=== PATIENT | female | born 1955 | race Caucasian/White ===

== ENCOUNTER 2020-07-11 07:31 | Day surgery (SDC) | payer MEDICAID ==
[~2020-07-11] VITALS: Ht 162.6 cm; Wt 94.0 kg
[2020-07-11] VITALS (11 sets, daily range): BP systolic 99–139; BP diastolic 51–74
[~2020-07-11 07:31] MED LIST: BIMA2.5D EACHEYE; DIGO250T PO; DILT240C51 PO; FERR325T28 PO; FLAX100019 PO; GABA-530 PO; GLYB5TAB7 PO; HYDR25TA4 PO; INSU100V12 SQ; LISI40TA4 PO; METF500T PO; METO25TA6 PO; MULT-1085 PO; POTA8TAB8 PO; RIVA20TA PO
[2020-07-11] MEDS ORDERED: diphenhydrAMINE 25mg capsule PO PRN (08:00)
[2020-07-11] MEDS ORDERED: normal saline 1,000 ML IV SCH (08:00)
[2020-07-11] MEDS ORDERED: LEVO25TA2 PO (08:32)
[2020-07-11] MEDS ORDERED: FENO145T46 PO (08:36)
[2020-07-11] MEDS ORDERED: ATOR10TA87 PO (08:36)
[2020-07-11] MEDS ORDERED: FURO80TA87 PO (08:58)
[2020-07-11] MEDS ORDERED: METO100T7 PO (09:00)
[2020-07-11] MEDS ORDERED: iohexol 350 MG/ML 50ML vial IV ONE (09:01)
[2020-07-11] MEDS ORDERED: fentaNYL/PF 50MCG/1 ML 2ML syringe ONE (09:01)
[2020-07-11] MEDS ORDERED: midazolam 2 mg/2 ml injection ONE ×2 (09:01→09:31)
[2020-07-11] MEDS ORDERED: LIDOcaine 1% (10mg/ml)w/preservative injection 20ml MDV ONE (09:01)
[2020-07-11] MEDS ORDERED: heparin 1,000unit/ml 10ml vial 10 ML ONE (09:01)
[2020-07-11] MEDS ORDERED: iohexol 350MG/ML 100ml bottle IV ONE (09:01)
[2020-07-11] MEDS ORDERED: CYAN100T47 PO (09:02)
[2020-07-11 09:03] LABS: BASOPHILS % (AUTO) 0.3 % (0-1); EOSINOPHILS # (AUTO) 0.3 X10'3 (0-0.9); EOSINOPHILS % (AUTO) 3.3 % (0-6); HEMOGLOBIN 14.2 g/dl (12.0-16.0); LYMPHOCYTES # (AUTO) 0.4 X10'3 (1.1-4.8); LYMPHOCYTES % (AUTO) 4.9 % (21-51); MEAN CORPUSCULAR HEMOGLOBIN 28.5 PG (27.0-31.0); MEAN CORPUSCULAR HGB CONC 33.1 g/dL (33.0-36.5); MEAN CORPUSCULAR VOLUME 86.2 FL (78-98); MEAN PLATELET VOLUME 9.3 FL (7.4-10.4); MONOCYTES # (AUTO) 0.5 X10'3 (0-0.9); MONOCYTES % (AUTO) 6.5 % (2-12); PLATELET COUNT 211 X10'3 (140-440); RED BLOOD COUNT 4.99 X10'6 (4.20-5.60); WHITE BLOOD COUNT 8.3 X10'3 (4.5-11.0)
[2020-07-11 09:13] LABS: ALBUMIN 2.2 G/DL (3.4-5.0); ANION GAP 5 (8-16); BLOOD UREA NITROGEN 24 MG/DL (7-18); CHLORIDE 105 MMOL/L (99-107); GLUCOSE 174 MG/DL (70-104); MAGNESIUM 1.6 MG/DL (1.5-2.4); SODIUM 141 MMOL/L (135-145); TOTAL CARBON DIOXIDE 31.1 MMOL/L (24-32); eGFR 35 ML/MIN
== END 2020-07-11 14:30 | disposition home or self-care (01) ==
LOC: SSTAY O 07:31
PROVIDERS: ATTEND Internal Medicine Cardiovascular Disease
DX: I31.1 Chronic constrictive pericarditis (principal); I25.10 Atherosclerotic heart disease of native coronary artery without angina pectoris; I48.20 Chronic atrial fibrillation, unspecified; E78.5 Hyperlipidemia, unspecified; E11.9 Type 2 diabetes mellitus without complications; E66.9 Obesity, unspecified; Z68.35 Body mass index [BMI] 35.0-35.9, adult; I10 Essential (primary) hypertension; Z79.899 Other long term (current) drug therapy; Z79.4 Long term (current) use of insulin; Z98.890 Other specified postprocedural states
CPT/HCPCS: 36415; 80048; 82948; 83735; 85025; 85610; 93005; 93460; 99152; 99153; C1760; C1894; J1644; J2001; J2250; J3010; J7030; J7040; Q9967; A4620; A6258; C1751

== ENCOUNTER 2020-10-22 07:30 | Inpatient (IN) | payer MEDICARE, MEDICAID ==
[2020-10-15 12:13] LABS: CLARITY,URINE CLEAR (Clear); COLOR,URINE YELLOW (Yellow); GLUCOSE, URINE NEGATIVE (Neg); KETONES,URINE NEGATIVE (Neg); LEUKOCYTE ESTERASE ,URINE NEGATIVE (Neg); NITRITES, URINE NEGATIVE (Neg); OCCULT BLOOD,URINE NEGATIVE (Neg); PH,URINE 5.5 (4.8-8.0); PROTEIN,URINE NEGATIVE (Neg); UROBILINOGEN,URINE 0.2 E.U/dL (0.2-1.0)
[2020-10-15 12:32] LABS: BASOPHILS % (AUTO) 0.3 % (0-1); EOSINOPHILS # (AUTO) 0.2 X10'3 (0-0.9); EOSINOPHILS % (AUTO) 2.8 % (0-6); LYMPHOCYTES # (AUTO) 0.4 X10'3 (1.1-4.8); LYMPHOCYTES % (AUTO) 5.4 % (21-51); MEAN CORPUSCULAR HEMOGLOBIN 27.3 PG (27.0-31.0); MEAN CORPUSCULAR HGB CONC 32.4 g/dL (33.0-36.5); MEAN CORPUSCULAR VOLUME 84.3 FL (78-98); MEAN PLATELET VOLUME 9.5 FL (7.4-10.4); MONOCYTES # (AUTO) 0.4 X10'3 (0-0.9); MONOCYTES % (AUTO) 5.3 % (2-12); NEUTROPHILS # (AUTO) 6.9 X10'3 (1.8-7.7); NEUTROPHILS % (AUTO) 86.2 % (42-75); PRE OP HEMATOCRIT 40.1 % (35.0-45.0); PRE OP PLATELET COUNT 245 X10'3 (140-440); RED BLOOD COUNT 4.75 X10'6 (4.20-5.60); RED CELL DISTRIBUTION WIDTH 15.2 % (11.5-14.5)
[2020-10-15 12:36] LABS: UA COLLECTION TYPE VOIDED
[2020-10-15 12:45] LABS: ALBUMIN 2.2 G/DL (3.4-5.0); ALBUMIN/GLOBULIN RATIO 0.8 (1.1-1.5); ALKALINE PHOSPHATASE 46 IU/L (46-116); BLOOD UREA NITROGEN 34 MG/DL (7-18); BUN/CREATININE RATIO 19.2 (6.6-38.0); CHLORIDE 105 MMOL/L (99-107); CREATININE 1.77 MG/DL (0.40-0.90); PRE OP ALT 19 U/L (30-65); PRE OP ANION GAP 5 (8-16); PRE OP AST 25 U/L (10-37); PRE OP BILIRUB, TOTAL 0.2 MG/DL (0.0-1.0); PRE OP GLUCOSE 183 MG/DL (70-104); PRE OP SODIUM 144 MMOL/L (135-145); TOTAL CARBON DIOXIDE 33.6 MMOL/L (24-32); eGFR 29 ML/MIN
[2020-10-15 12:52] LABS: PRE OP INR 1.1 INR; PRE OP PROTIME 11.4 SECONDS (9.0-12.0)
[2020-10-15 14:34] LABS: ABG BASE EXCESS 3.9 mmol/L (-2.0-2.0); ABG HCO3 28.3 mmol/L (22.0-26.0); ABG OXYGEN SATURATION 96.7 % (94-97); ABG PCO2 (T) 41.5 mmHg (32.0-45.0); ABG PO2 (T) 87.4 mmHg (75.0-100.0); ALLEN'S TEST POSITIVE; FCOHb 0.3 % (0.0-3.9); FMetHb 0.3 % (0.0-1.5); FO2Hb 96.1 % (94-97); TOTAL HEMOGLOBIN 13.7 G/dl (12.0-16.0)
[~2020-10-22] VITALS: Ht 162.6 cm; Wt 94.1 kg
[~2020-10-22 07:30] MED LIST changes: +ALOG1TAB8 PO; +ATOR10TA87 PO; -BIMA2.5D EACHEYE; -DILT240C51 PO; +FENO145T46 PO; -FERR325T28 PO; -FLAX100019 PO; -GLYB5TAB7 PO; -HYDR25TA4 PO; +INSU100I31 SQ; -INSU100V12 SQ; +LEVO25TA2 PO; +LISI40TA13 PO; -LISI40TA4 PO; +METO100T7 PO; -METO25TA6 PO; -MULT-1085 PO
[2020-10-28] MEDS ORDERED: LIDOcaine 2% (20mg/ml) 5ml vial ONE (07:02)
[2020-10-28] MEDS ORDERED: propofol inj 20 ML IV ONE (07:02)
[2020-10-28] MEDS ORDERED: fentaNYL/PF 50MCG/1 ML 2ML syringe ONE ×2 (07:03→08:33)
[2020-10-28] MEDS ORDERED: dexamethasone sod phosphate 4mg/ml inj. ONE (07:03)
[2020-10-28] MEDS ORDERED: ROPIVAcaine 0.5% (5mg/ml) 30ml vial ONE (07:03)
[2020-10-28] MEDS ORDERED: midazolam 2 mg/2 ml injection ONE (07:03)
[2020-10-28] MEDS ORDERED: ondansetron/PF 4mg/2ml inj ONE (07:36)
[2020-10-28] MEDS ORDERED: LATA2.5D14 EACHEYE (11:15)
[2020-10-28] MEDS ORDERED: TORS20TA3 PO (11:21)
[2020-10-29] VITALS (17 sets, daily range): BP systolic 97–131; BP diastolic 45–70
[2020-10-29] MEDS ORDERED: ringers solution, lacted 1,000 ML IV SCH (05:00)
[2020-10-29] MEDS ORDERED: ceFAZolin 1000mg inj ONE (05:00)
[2020-10-29] MEDS ORDERED: vancomycin 1,500 MG in NS 300ml IV soln IV ONE (05:30)
[2020-10-29] MEDS ORDERED: famotidine 20mg tablet PO ONE (05:30)
[2020-10-29] MEDS ORDERED: ceFAZolin 2gm in dextrose, iso 50 ML IV ONE (05:30)
[2020-10-29] MEDS ORDERED: metoprolol tartrate 12.5mg (1/2 tablet) PO ONE (06:00)
[2020-10-29] MEDS ORDERED: gabapentin 400mg capsule PO ONE (06:00)
[2020-10-29] MEDS ORDERED: mupirocin 2% nasal ointment 1gm UD NS ONE (06:00)
[2020-10-29] MEDS ORDERED: LORazepam 2 mg/ml vial IV ONE (06:00)
--- NOTE | 2020-10-29 06:35 | NUR ---
SPOKE WITH DR. SHYAM PERALES BLOOD SUGAR = 258MG/DL. NO TX AT THIS TIME Addendum: 10/29/20 at 0648 by Komal Callaway RN Amended: Links added.
[2020-10-29] MEDS ORDERED: SUFENTANIL CITRATE 50 MCG/ML 2ml ampule IV ONE (07:59)
[2020-10-29] MEDS ORDERED: MIDAZolam 5mg/5ml vial ONE (07:59)
[2020-10-29] MEDS ORDERED: rocuronium 10mg/ml inj IV ONE ×3 (10:19)
[2020-10-29] MEDS ORDERED: propofol inj 20 ML IV ONE (10:20)
[2020-10-29 11:36] LABS: ABG BASE EXCESS VENOUS 2.1 mmol/L; ABG HCO3 VENOUS 27.3 mmol/L; ABG PO2 VENOUS 37.3 mmHg; CL (ABG) 103 mmol/L (98-110); FCOHb VENOUS 0.8 %; FHHb VENOUS 27.4 %; FO2Hb VENOUS 71.8 %; GLUCOSE (ABG) 261 mg/dl (70-140); IONIZED CA (ABG) 1.11 mmol/L (1.10-1.43); K (ABG) 3.5 mmol/L (3.5-5.0); TOTAL HEMOGLOBIN 12.4 G/dl (12.0-16.0)
[2020-10-29 11:38] LABS: ISTAT CREATININE 1.4 mg/dL (0.6-1.1); ISTAT HGB 10.9 g/dl (12.0-16.0); ISTAT IONIZED CALCIUM 1.16 mmol/L (1.03-1.32); ISTAT K 3.7 mmol/L (3.5-5.1); POC BUN/CREATININE RATIO 20.7 (6.6-38.0)
[2020-10-29] MEDS ORDERED: insulin glargine (Lantus) pen - multi-dose SQ PRN (12:35)
[2020-10-29] MEDS ORDERED: dextrose 50%-water 50ml dispensing syringe IV PRN (12:35)
[2020-10-29] MEDS ORDERED: sodium chloride 0.45% 1,000 ML IV SCH (12:35)
[2020-10-29] MEDS ORDERED: sodium phosphate inj. 30 MMOL in dextrose 5%-water 250 ML IV PRN (12:35)
[2020-10-29] MEDS ORDERED: pantoprazole 40 MG vial IV ONE (12:35)
[2020-10-29] MEDS ORDERED: acetaminophen 325mg tablet PO PRN ×2 (12:35)
[2020-10-29] MEDS ORDERED: ondansetron/PF 4mg/2ml inj IV PRN (12:35)
[2020-10-29] MEDS ORDERED: albumin (Human) 5% 250ml 250 ML IV PRN (12:35)
[2020-10-29] MEDS ORDERED: morphine 4 MG/ML inj SYRINge IV PRN ×2 (12:35)
[2020-10-29] MEDS ORDERED: mineral oil 133ml enema RC PRN (12:35)
[2020-10-29] MEDS ORDERED: potassium CL 10mEq/100ml bag 100 ML IV PRN (12:35)
[2020-10-29] MEDS ORDERED: niCARDipine-NS 40mg/200ml IVPB 200 ML IV PRN (12:35)
[2020-10-29] MEDS ORDERED: potassium Cl 40MEQ/250ML bag 250 ML IV PRN (12:35)
[2020-10-29] MEDS ORDERED: potassium Cl 40MEQ/1/2NS 520ml 520 ML IV PRN (12:35)
[2020-10-29] MEDS ORDERED: DOPamine 400mg/D5W 250ml 250 ML IV PRN (12:35)
[2020-10-29] MEDS ORDERED: magnesium 2GM in 50ml NS 50 ML IV PRN (12:35)
[2020-10-29] MEDS ORDERED: magnesium citrate 296ml oral solution PO PRN (12:35)
[2020-10-29] MEDS ORDERED: magnesium hydroxide 30ml (MOM) UD suspension PO PRN (12:35)
[2020-10-29] MEDS ORDERED: potassium Cl 20mEq/100mL bag 100 ML IV PRN (12:35)
[2020-10-29] MEDS ORDERED: HYDROcodone/acetaminophen 10/325mg tab PO PRN (12:35)
[2020-10-29] MEDS ORDERED: normal saline 250ml IV soln 250 ML IV PRN (12:35)
[2020-10-29] MEDS ORDERED: nitroGLYCERIN-Tridil 50MG/D5W 250 ML IV PRN (12:35)
[2020-10-29] MEDS ORDERED: metoclopramide 5 mg/ml inj IV PRN (12:35)
[2020-10-29] MEDS ORDERED: Insulin Reg/NS 100units/100mL 100 ML IV SCH (12:35)
[2020-10-29] MEDS ORDERED: bisacodyl 10mg suppository rectal RC PRN (12:35)
[2020-10-29] MEDS ORDERED: Neutra Phos packet PO PRN (12:35)
[2020-10-29] MEDS ORDERED: magnesium 4gm in 100ml NS 100 ML IV PRN (12:35)
[2020-10-29] MEDS ORDERED: potassium Cl 20 mEq SR tablet PO PRN (12:35)
[2020-10-29] MEDS ORDERED: sodium phosphate inj. 15 MMOL in dextrose 5%-water 250 ML IV PRN (12:35)
--- NOTE | 2020-10-29 12:45 | NUR ---
Received to room 2009, accompanied by MDs and surgical crew. Placed on ventilator, to heat treat puller, arterial line and PA line pressure monitored. Chest tubes to suction at 20 cm. Richter cath to gravity drainage. Dressings are dry and intact. See assessment record. All vasoactive drugs are infusing via central line.
[2020-10-29 12:53] LABS: ABG BASE EXCESS 1.8 mmol/L (-2.0-2.0); ABG OXYGEN SATURATION 97.1 % (94-97); ABG PCO2 (T) 36.5 mmHg (32.0-45.0); ABG PO2 (T) 86.8 mmHg (75.0-100.0); FCOHb 0.1 % (0.0-3.9); FMetHb 0.3 % (0.0-1.5); FO2Hb 96.7 % (94-97); PATIENT TEMPERATURE 35.4; PEEP 5 cm H2O; RESPIRATORY RATE 14 b/min; TIDAL VOLUME 543 mL; TOTAL HEMOGLOBIN 12.3 G/dl (12.0-16.0)
[2020-10-29 13:10] LABS: BASOPHILS % (AUTO) 0.2 % (0-1); EOSINOPHILS % (AUTO) 0.4 % (0-6); HEMOGLOBIN 11.3 g/dl (12.0-16.0); LYMPHOCYTES # (AUTO) 0.3 X10'3 (1.1-4.8); LYMPHOCYTES % (AUTO) 3.3 % (21-51); MEAN CORPUSCULAR HEMOGLOBIN 27.4 PG (27.0-31.0); MEAN CORPUSCULAR HGB CONC 32.4 g/dL (33.0-36.5); MEAN CORPUSCULAR VOLUME 84.5 FL (78-98); MEAN PLATELET VOLUME 9.4 FL (7.4-10.4); MONOCYTES # (AUTO) 0.4 X10'3 (0-0.9); MONOCYTES % (AUTO) 5.1 % (2-12); NEUTROPHILS # (AUTO) 7.3 X10'3 (1.8-7.7); PLATELET COUNT 147 X10'3 (140-440); RED BLOOD COUNT 4.14 X10'6 (4.20-5.60); WHITE BLOOD COUNT 8.1 X10'3 (4.5-11.0)
[2020-10-29] MEDS: Insulin Reg/NS 100units/100mL 100 ML IV SCH (13:17)
[2020-10-29 13:22] LABS: PARTIAL THROMBOPLASTIN TIME 23 SECONDS (22-32)
[2020-10-29 13:24] LABS: ALANINE AMINOTRANSFERASE 18 U/L (12-78); ALBUMIN 1.8 G/DL (3.4-5.0); ALBUMIN/GLOBULIN RATIO 0.8 (1.1-1.5); ALKALINE PHOSPHATASE 32 IU/L (46-116); ANION GAP 9 (8-16); ASPARTATE AMINO TRANSFERASE 18 U/L (10-37); BILIRUBIN,TOTAL 0.4 MG/DL (0.1-1.0); BLOOD UREA NITROGEN 27 MG/DL (7-18); CALCIUM 7.6 MG/DL (8.5-10.1); CHLORIDE 108 MMOL/L (99-107); CREATININE 1.35 MG/DL (0.40-0.90); GLUCOSE 277 MG/DL (70-104); MAGNESIUM 1.3 MG/DL (1.5-2.4); PHOSPHORUS 3.2 MG/DL (2.3-4.5); POTASSIUM 3.6 MMOL/L (3.5-5.1); SODIUM 144 MMOL/L (135-145); TOTAL CARBON DIOXIDE 26.7 MMOL/L (24-32); eGFR 39 ML/MIN
[2020-10-29] MEDS: gabapentin 300mg capsule PO SCH ×2 (13:40→21:12)
[2020-10-29] MEDS: ceFAZolin/D5W- 1GM premix 50 ML IV SCH (15:05)
[2020-10-29] MEDS ORDERED: furosemide 40mg/4ml inj IV ONE (16:10)
--- NOTE | 2020-10-29 16:10 | NUR ---
Dr. Armando called to update on patient status and that Dopamine was started per protocol as patient's HR down to the low 50s to 60s. Patient's blood pressure also originally down to SBP in the 80s with little improvement with x1 Albumin. After starting Dopamine, HR improved to 60-70s and SBP up to 100-110s. Patient has been calm and following commands; however, patient tachypneic with RR in the 20s and in the 30s when on spontaneous. Dr. Armando with orders to place patient on spontaneous and check an ABG while patient is tachypneic. MD also aware of lower urine output, and MD had ordered Lasix 40mg once and start again BID in the AM.
[2020-10-29 17:08] LABS: ABG BASE EXCESS -0.8 mmol/L (-2.0-2.0); ABG HCO3 21.9 mmol/L (22.0-26.0); ABG OXYGEN SATURATION 96.8 % (94-97); ABG PCO2 (T) 30.4 mmHg (32.0-45.0); ABG PO2 (T) 87.7 mmHg (75.0-100.0); FCOHb 0.4 % (0.0-3.9); FMetHb 0.4 % (0.0-1.5); PATIENT TEMPERATURE 36.9; PEEP 5 cm H2O; TOTAL HEMOGLOBIN 12.9 G/dl (12.0-16.0)
--- NOTE | 2020-10-29 17:28 | NUR ---
Dr. Armando called with weaning parameters and MD aware CO2 down to 30 and pH 7.474. Orders to extubate and okay to use patient's home CPAP.
--- NOTE | 2020-10-29 17:30 | NUR ---
Per Dr Armando, place pt on spont for 1 hour and get ABG. MD aware of pts RR in the 30's when on spont with small tidal volumes. ABG obtain. Weaning parameters obtain. RSBI was 91. MD aware and placed orders to extubate the pt. Pt awake and follwoing commands, able to communicate her needs with us and understands. Addendum: 10/29/20 at 1733 by Elke Gómez RT Amended: Links added.
--- NOTE | 2020-10-29 18:30 | NUR ---
Patient in room CICU 2008. I have received report from Gerardo CANALES and had the opportunity to ask questions and assume patient care.
[2020-10-29 18:32] LABS: BASOPHILS # (AUTO) 0.1 X10'3 (0-0.2); BASOPHILS % (AUTO) 0.5 % (0-1); EOSINOPHILS % (AUTO) 0.1 % (0-6); HEMATOCRIT 37.5 % (35.0-45.0); HEMOGLOBIN 12.1 g/dl (12.0-16.0); LYMPHOCYTES # (AUTO) 0.4 X10'3 (1.1-4.8); LYMPHOCYTES % (AUTO) 2.7 % (21-51); MEAN CORPUSCULAR HGB CONC 32.4 g/dL (33.0-36.5); MEAN CORPUSCULAR VOLUME 83.6 FL (78-98); MEAN PLATELET VOLUME 8.9 FL (7.4-10.4); MONOCYTES # (AUTO) 0.7 X10'3 (0-0.9); MONOCYTES % (AUTO) 4.9 % (2-12); NEUTROPHILS % (AUTO) 91.8 % (42-75); PLATELET COUNT 218 X10'3 (140-440); RED BLOOD COUNT 4.48 X10'6 (4.20-5.60); RED CELL DISTRIBUTION WIDTH 15.6 % (11.5-14.5); WHITE BLOOD COUNT 14.1 X10'3 (4.5-11.0)
--- NOTE | 2020-10-29 18:37 | NUR ---
Problems reprioritized. Patient report given, questions answered & plan of care reviewed with Mila CANALES.
[2020-10-29 18:53] LABS: ALBUMIN 2.2 G/DL (3.4-5.0); ANION GAP 6 (8-16); BLOOD UREA NITROGEN 28 MG/DL (7-18); CALCIUM 8.2 MG/DL (8.5-10.1); CHLORIDE 110 MMOL/L (99-107); CREATININE 1.47 MG/DL (0.40-0.90); GLUCOSE 128 MG/DL (70-104); MAGNESIUM 2.9 MG/DL (1.5-2.4); PHOSPHORUS 2.7 MG/DL (2.3-4.5); POTASSIUM 3.5 MMOL/L (3.5-5.1); SODIUM 143 MMOL/L (135-145); TOTAL CARBON DIOXIDE 27.5 MMOL/L (24-32); eGFR 36 ML/MIN
[2020-10-29] MEDS ORDERED: furosemide 40mg/4ml inj IV SCH (20:00)
[2020-10-29] MEDS: latanoprost 0.005% 2.5ml ophthalmic drops EACHEYE SCH (21:11)
[2020-10-29] MEDS: sennosides/docusate sodium tablet PO SCH (21:12)
[2020-10-29] MEDS: mupirocin 2% ointment 22GM NS SCH (21:12)
[2020-10-29] MEDS: vancomycin/NS 1 GM ADD-VANTAGE 250 ML IV SCH (21:12)
[2020-10-29] MEDS: atorvastatin 10mg tablet PO SCH (21:12)
[2020-10-29] MEDS: HYDROcodone/acetaminophen 10/325mg tab PO PRN (23:05)
[2020-10-30] VITALS (17 sets, daily range): BP systolic 94–136; BP diastolic 41–90
[2020-10-30] MEDS: ceFAZolin/D5W- 1GM premix 50 ML IV SCH (00:40)
[2020-10-30] MEDS: Insulin Reg/NS 100units/100mL 100 ML IV SCH (01:17)
[2020-10-30 04:21] LABS: BASOPHILS % (AUTO) 0.2 % (0-1); EOSINOPHILS % (AUTO) 0.1 % (0-6); HEMATOCRIT 35.7 % (35.0-45.0); HEMOGLOBIN 11.6 g/dl (12.0-16.0); LYMPHOCYTES # (AUTO) 0.3 X10'3 (1.1-4.8); LYMPHOCYTES % (AUTO) 2.7 % (21-51); MEAN CORPUSCULAR HEMOGLOBIN 27.2 PG (27.0-31.0); MEAN CORPUSCULAR HGB CONC 32.6 g/dL (33.0-36.5); MEAN CORPUSCULAR VOLUME 83.7 FL (78-98); MEAN PLATELET VOLUME 9.4 FL (7.4-10.4); MONOCYTES # (AUTO) 0.8 X10'3 (0-0.9); MONOCYTES % (AUTO) 6.6 % (2-12); NEUTROPHILS # (AUTO) 11.5 X10'3 (1.8-7.7); NEUTROPHILS % (AUTO) 90.4 % (42-75); PLATELET COUNT 192 X10'3 (140-440); RED BLOOD COUNT 4.27 X10'6 (4.20-5.60); RED CELL DISTRIBUTION WIDTH 15.8 % (11.5-14.5); WHITE BLOOD COUNT 12.7 X10'3 (4.5-11.0)
[2020-10-30 04:29] LABS: PARTIAL THROMBOPLASTIN TIME 27 SECONDS (22-32)
[2020-10-30 04:30] LABS: ALANINE AMINOTRANSFERASE 15 U/L (12-78); ALBUMIN 1.7 G/DL (3.4-5.0); ALBUMIN/GLOBULIN RATIO 0.7 (1.1-1.5); ALKALINE PHOSPHATASE 32 IU/L (46-116); ANION GAP 8 (8-16); ASPARTATE AMINO TRANSFERASE 22 U/L (10-37); BILIRUBIN,TOTAL 0.3 MG/DL (0.1-1.0); BLOOD UREA NITROGEN 28 MG/DL (7-18); BUN/CREATININE RATIO 18.9 (6.6-38.0); CALCIUM 7.9 MG/DL (8.5-10.1); CHLORIDE 110 MMOL/L (99-107); CREATININE 1.48 MG/DL (0.40-0.90); GLUCOSE 100 MG/DL (70-104); MAGNESIUM 2.4 MG/DL (1.5-2.4); PHOSPHORUS 3.9 MG/DL (2.3-4.5); POTASSIUM 3.8 MMOL/L (3.5-5.1); SODIUM 144 MMOL/L (135-145); TOTAL CARBON DIOXIDE 25.9 MMOL/L (24-32); eGFR 35 ML/MIN
[2020-10-30] MEDS: HYDROcodone/acetaminophen 10/325mg tab PO PRN ×2 (05:27→13:45)
[2020-10-30] MEDS ORDERED: potassium Cl 40MEQ/1/2NS 520ml 520 ML IV PRN (07:40)
[2020-10-30] MEDS ORDERED: magnesium 4gm in 100ml NS 100 ML IV PRN (07:40)
[2020-10-30] MEDS ORDERED: potassium Cl 20mEq/100mL bag 100 ML IV PRN (07:40)
[2020-10-30] MEDS ORDERED: potassium Cl 40MEQ/250ML bag 250 ML IV PRN (07:40)
[2020-10-30] MEDS ORDERED: potassium Cl 20 mEq SR tablet PO PRN (07:40)
[2020-10-30] MEDS ORDERED: magnesium 2GM in 50ml NS 50 ML IV PRN (07:40)
[2020-10-30] MEDS ORDERED: potassium CL 10mEq/100ml bag 100 ML IV PRN (07:40)
[2020-10-30] MEDS ORDERED: metoprolol succinate 25mg (24-HOUR) SR. Tablet PO SCH (08:00)
[2020-10-30] MEDS: sennosides/docusate sodium tablet PO SCH ×2 (08:00→21:13)
[2020-10-30] MEDS ORDERED: aspirin 325mg tablet, delayed-release (Ecotrin) PO SCH (08:00)
[2020-10-30] MEDS ORDERED: lisinopril 20mg tablet PO SCH (08:00)
[2020-10-30] MEDS ORDERED: enoxaparin 30mg/0.3ml syringe SUBCUT SCH (08:00)
[2020-10-30] MEDS: gabapentin 300mg capsule PO SCH ×3 (08:29→21:12)
[2020-10-30] MEDS: digoxin 250mcg (0.25mg) tablet PO SCH (08:31)
[2020-10-30] MEDS: levoTHYROXINE 25mcg tablet PO SCH (08:31)
[2020-10-30] MEDS: magnesium Cl slow-release 64mg tablet PO SCH ×2 (08:31→21:13)
[2020-10-30] MEDS: potassium Cl 20 mEq SR tablet PO SCH ×2 (08:32→21:12)
[2020-10-30] MEDS: fenofibrate 48mg tablet PO SCH (08:32)
[2020-10-30] MEDS: furosemide 40mg/4ml inj IV SCH ×2 (08:33→21:13)
[2020-10-30] MEDS: aspirin 81mg tablet.DR PO SCH (08:33)
[2020-10-30] MEDS: mupirocin 2% ointment 22GM NS SCH ×2 (08:35→21:14)
--- NOTE | 2020-10-30 09:20 | NUR ---
Nutrition consult post cardiac surgery. Additionally, Hgb a1c is 7%; patient will need post cardiac surgery education handout and written DM education handout with verbal review. Addendum: 10/30/20 at [address] Amended: Links added.
[2020-10-30] MEDS: vancomycin/NS 1 GM ADD-VANTAGE 250 ML IV SCH ×2 (09:35→21:14)
[2020-10-30] MEDS ORDERED: GLYB5TAB7 PO (12:36)
[2020-10-30] MEDS ORDERED: DULO30CA52 PO (12:44)
[2020-10-30] MEDS ORDERED: NITR0.4T51 SL (12:44)
[2020-10-30] MEDS ORDERED: dextrose ORAL solution 15 GM/59 ML bottle PO PRN ×2 (13:25)
[2020-10-30] MEDS ORDERED: dextrose 50%-water 50ml dispensing syringe IV PRN ×2 (13:25)
[2020-10-30] MEDS ORDERED: glucagon, human recombinant 1mg kit SUBCUT PRN (13:25)
--- NOTE | 2020-10-30 14:37 | NUR ---
PA line pulled pressure held for greater than 5 minutes no bleeding. sterile central line dressing applied. ARt line pulled earlier and pressure held for 5 minutes. dressing applied
--- NOTE | 2020-10-30 15:16 | NUR ---
central line dc'd pressure held without bleeding, dry dressing applied
--- NOTE | 2020-10-30 15:52 | NUR ---
[facility], report given to Min time allowed for questions. pt transferred with all belongings
[2020-10-30] MEDS: atorvastatin 10mg tablet PO SCH (21:12)
[2020-10-30] MEDS: latanoprost 0.005% 2.5ml ophthalmic drops EACHEYE SCH (21:14)
[2020-10-30] MEDS: rivaroxaban 20mg tablet PO SCH (21:17)
[2020-10-31 02:00] VITALS: BP 115/62
[2020-10-31 06:32] LABS: BASOPHILS % (AUTO) 0.3 % (0-1); EOSINOPHILS # (AUTO) 0.1 X10'3 (0-0.9); EOSINOPHILS % (AUTO) 0.7 % (0-6); HEMATOCRIT 35.1 % (35.0-45.0); HEMOGLOBIN 11.3 g/dl (12.0-16.0); LYMPHOCYTES # (AUTO) 0.5 X10'3 (1.1-4.8); LYMPHOCYTES % (AUTO) 4.2 % (21-51); MEAN CORPUSCULAR HEMOGLOBIN 27.1 PG (27.0-31.0); MEAN CORPUSCULAR HGB CONC 32.2 g/dL (33.0-36.5); MEAN PLATELET VOLUME 8.7 FL (7.4-10.4); MONOCYTES # (AUTO) 0.9 X10'3 (0-0.9); MONOCYTES % (AUTO) 7.3 % (2-12); NEUTROPHILS % (AUTO) 87.5 % (42-75); PLATELET COUNT 200 X10'3 (140-440); RED BLOOD COUNT 4.18 X10'6 (4.20-5.60); RED CELL DISTRIBUTION WIDTH 16.1 % (11.5-14.5); WHITE BLOOD COUNT 12.6 X10'3 (4.5-11.0)
[2020-10-31 06:49] LABS: ALBUMIN 1.5 G/DL (3.4-5.0); ANION GAP 5 (8-16); BLOOD UREA NITROGEN 37 MG/DL (7-18); BUN/CREATININE RATIO 18.4 (6.6-38.0); CALCIUM 8.2 MG/DL (8.5-10.1); CHLORIDE 107 MMOL/L (99-107); CREATININE 2.01 MG/DL (0.40-0.90); GLUCOSE 197 MG/DL (70-104); SODIUM 140 MMOL/L (135-145); TOTAL CARBON DIOXIDE 27.8 MMOL/L (24-32); eGFR 25 ML/MIN
[2020-10-31 07:00] VITALS: BP 97/50
[2020-10-31] MEDS: potassium Cl 20 mEq SR tablet PO SCH ×3 (08:00→20:00)
[2020-10-31] MEDS: mupirocin 2% ointment 22GM NS SCH (08:00)
[2020-10-31] MEDS: magnesium Cl slow-release 64mg tablet PO SCH ×2 (08:07→20:30)
[2020-10-31] MEDS: gabapentin 300mg capsule PO SCH (08:07)
[2020-10-31] MEDS: furosemide 40mg/4ml inj IV SCH (08:07)
[2020-10-31] MEDS: sennosides/docusate sodium tablet PO SCH ×2 (08:08→20:30)
[2020-10-31] MEDS: levoTHYROXINE 25mcg tablet PO SCH (08:08)
[2020-10-31] MEDS: digoxin 250mcg (0.25mg) tablet PO SCH (08:08)
[2020-10-31] MEDS: aspirin 81mg tablet.DR PO SCH (08:10)
[2020-10-31] MEDS: fenofibrate 48mg tablet PO SCH (08:10)
[2020-10-31] MEDS: pantoprazole 40mg Tablet.DR PO SCH (08:17)
--- NOTE | 2020-10-31 09:00 | NUR ---
B/P systolic in The 70"s, patient alert in no acute distress, denies any dizziness. Partial dose of lasix 20 mg instead of 40 mg was given, metoprolol and lisinopril held. Chi ROSSI was notified.
[2020-10-31 10:00] VITALS: BP 93/57
[2020-10-31] MEDS: insulin Lispro (HumaLOG) vial - multi-dose SQ SCH ×2 (10:07→20:49)
[2020-10-31 14:00] VITALS: BP 126/69
--- NOTE | 2020-10-31 14:00 | NUR ---
Balloon deflated, Richter catheter discontinued Addendum: 10/31/20 at 1723 by Na Murillo RN Amended: Links added.
--- NOTE | 2020-10-31 16:09 | NUR ---
DM consult and post cardiac surgery education: visited pt at bed side to provide DM and high protein diet post cardiac surgery education. Pt reports having good appetite and taking multivitamins at home. D/w pt importance of high protein diet post cardiac surgery. Encouraged pt to drink protein supplements at home when discharge if not able to have a high protein diet. 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 Pt HbA1c is 7%, provided written DM education on pt bed side. Will continue to monitor and provide full assessment on 11/03. Addendum: 10/31/20 at [address] Amended: Links added.
--- NOTE | 2020-10-31 16:10 | NUR ---
DM consult and post cardiac surgery education: visited pt at bed side to provide DM and high protein diet post cardiac surgery education. Pt reports having good appetite and taking multivitamins at home. D/w pt importance of high protein diet post cardiac surgery. Encouraged pt to drink protein supplements at home when discharge if not able to have a high protein diet. Pt also reports not tolerating milk to drink and having allergies to all nuts, inclusion intern recommended trial of soy milk, pt agreed, d/w dietary. Pt HbA1c is 7%, provided written DM education on pt bed side. Will continue to monitor and provide full assessment on 11/03. Addendum: 10/31/20 at [address] Amended: Links added.
[2020-10-31] MEDS: rivaroxaban 20mg tablet PO SCH (17:29)
[2020-10-31 18:00] VITALS: BP 116/53
[2020-10-31] MEDS: atorvastatin 10mg tablet PO SCH (20:30)
[2020-10-31] MEDS: furosemide 20MG tablet PO SCH (20:30)
[2020-10-31] MEDS: latanoprost 0.005% 2.5ml ophthalmic drops EACHEYE SCH (20:31)
[2020-10-31] MEDS: lisinopril 10 MG tablet PO SCH (20:41)
[2020-10-31] MEDS: insulin glargine (Lantus) pen - multi-dose SQ SCH (21:06)
[2020-10-31 22:00] VITALS: BP 108/49
[2020-11-01 02:00] VITALS: BP 124/57
[2020-11-01] MEDS: HYDROcodone/acetaminophen 10/325mg tab PO PRN ×2 (03:45→20:25)
[2020-11-01 06:00] VITALS: BP 99/57
[2020-11-01 06:18] LABS: BASOPHILS % (AUTO) 0.3 % (0-1); EOSINOPHILS # (AUTO) 0.2 X10'3 (0-0.9); HEMATOCRIT 31.9 % (35.0-45.0); HEMOGLOBIN 10.6 g/dl (12.0-16.0); LYMPHOCYTES # (AUTO) 0.3 X10'3 (1.1-4.8); LYMPHOCYTES % (AUTO) 3.5 % (21-51); MEAN CORPUSCULAR HEMOGLOBIN 27.9 PG (27.0-31.0); MEAN CORPUSCULAR HGB CONC 33.1 g/dL (33.0-36.5); MEAN CORPUSCULAR VOLUME 84.2 FL (78-98); MEAN PLATELET VOLUME 8.9 FL (7.4-10.4); MONOCYTES # (AUTO) 0.7 X10'3 (0-0.9); MONOCYTES % (AUTO) 7.5 % (2-12); NEUTROPHILS # (AUTO) 7.9 X10'3 (1.8-7.7); NEUTROPHILS % (AUTO) 86.7 % (42-75); PLATELET COUNT 151 X10'3 (140-440); RED BLOOD COUNT 3.79 X10'6 (4.20-5.60); WHITE BLOOD COUNT 9.2 X10'3 (4.5-11.0)
[2020-11-01 06:31] LABS: ALBUMIN 1.1 G/DL (3.4-5.0); ANION GAP 4 (8-16); BLOOD UREA NITROGEN 36 MG/DL (7-18); BUN/CREATININE RATIO 21.6 (6.6-38.0); CALCIUM 7.9 MG/DL (8.5-10.1); CHLORIDE 106 MMOL/L (99-107); CREATININE 1.67 MG/DL (0.40-0.90); GLUCOSE 148 MG/DL (70-104); POTASSIUM 4.7 MMOL/L (3.5-5.1); SODIUM 137 MMOL/L (135-145); TOTAL CARBON DIOXIDE 26.6 MMOL/L (24-32); eGFR 31 ML/MIN
[2020-11-01] MEDS: levoTHYROXINE 25mcg tablet PO SCH (08:00)
[2020-11-01] MEDS: potassium Cl 20 mEq SR tablet PO SCH ×2 (08:00→20:00)
[2020-11-01] MEDS: aspirin 81mg tablet.DR PO SCH (08:41)
[2020-11-01] MEDS: sennosides/docusate sodium tablet PO SCH ×2 (08:41→20:23)
[2020-11-01] MEDS: fenofibrate 48mg tablet PO SCH (08:42)
[2020-11-01] MEDS: magnesium Cl slow-release 64mg tablet PO SCH ×2 (08:42→20:00)
[2020-11-01] MEDS: digoxin 250mcg (0.25mg) tablet PO SCH (08:42)
[2020-11-01] MEDS: furosemide 20MG tablet PO SCH ×2 (08:42→20:23)
[2020-11-01] MEDS: pantoprazole 40mg Tablet.DR PO SCH (08:47)
[2020-11-01] MEDS: insulin Lispro (HumaLOG) vial - multi-dose SQ SCH ×2 (09:32→14:14)
[2020-11-01 12:00] VITALS: BP 134/59
[2020-11-01] MEDS: lisinopril 10 MG tablet PO SCH (14:20)
[2020-11-01 15:00] VITALS: BP 139/53
[2020-11-01] MEDS: rivaroxaban 20mg tablet PO SCH (17:39)
[2020-11-01 18:00] VITALS: BP 139/49
[2020-11-01] MEDS: atorvastatin 10mg tablet PO SCH (20:23)
[2020-11-01 22:00] VITALS: BP 109/40
[2020-11-01] MEDS: latanoprost 0.005% 2.5ml ophthalmic drops EACHEYE SCH (22:27)
[2020-11-01] MEDS: insulin glargine (Lantus) pen - multi-dose SQ SCH (22:33)
[2020-11-02 02:00] VITALS: BP 118/71
[2020-11-02 06:00] VITALS: BP 130/65
[2020-11-02 06:29] LABS: BASOPHILS % (AUTO) 0.3 % (0-1); EOSINOPHILS # (AUTO) 0.3 X10'3 (0-0.9); EOSINOPHILS % (AUTO) 3.9 % (0-6); HEMATOCRIT 31.3 % (35.0-45.0); HEMOGLOBIN 10.4 g/dl (12.0-16.0); LYMPHOCYTES # (AUTO) 0.4 X10'3 (1.1-4.8); LYMPHOCYTES % (AUTO) 5.9 % (21-51); MEAN CORPUSCULAR HEMOGLOBIN 27.6 PG (27.0-31.0); MEAN CORPUSCULAR HGB CONC 33.2 g/dL (33.0-36.5); MONOCYTES # (AUTO) 0.7 X10'3 (0-0.9); MONOCYTES % (AUTO) 10.4 % (2-12); NEUTROPHILS # (AUTO) 5.6 X10'3 (1.8-7.7); NEUTROPHILS % (AUTO) 79.5 % (42-75); PLATELET COUNT 194 X10'3 (140-440); RED BLOOD COUNT 3.77 X10'6 (4.20-5.60); RED CELL DISTRIBUTION WIDTH 16.2 % (11.5-14.5)
--- NOTE | 2020-11-02 06:29 | NUR ---
Patient in room MED 317. I have received report from lonnie raya and had the opportunity to ask questions and assume patient care.
[2020-11-02 06:39] LABS: ALBUMIN 1.1 G/DL (3.4-5.0); ANION GAP 6 (8-16); BLOOD UREA NITROGEN 33 MG/DL (7-18); CALCIUM 8.4 MG/DL (8.5-10.1); CHLORIDE 105 MMOL/L (99-107); CREATININE 1.57 MG/DL (0.40-0.90); GLUCOSE 145 MG/DL (70-104); POTASSIUM 4.3 MMOL/L (3.5-5.1); SODIUM 140 MMOL/L (135-145); TOTAL CARBON DIOXIDE 29.4 MMOL/L (24-32); eGFR 33 ML/MIN
[2020-11-02] MEDS: pantoprazole 40mg Tablet.DR PO SCH (07:30)
[2020-11-02] MEDS: levoTHYROXINE 25mcg tablet PO SCH (07:30)
[2020-11-02] MEDS: lisinopril 10 MG tablet PO SCH (07:32)
[2020-11-02] MEDS: aspirin 81mg tablet.DR PO SCH (07:32)
[2020-11-02] MEDS: digoxin 250mcg (0.25mg) tablet PO SCH (07:34)
[2020-11-02] MEDS: potassium Cl 20 mEq SR tablet PO SCH ×2 (07:34→19:52)
[2020-11-02] MEDS: furosemide 20MG tablet PO SCH ×2 (07:34→19:52)
[2020-11-02] MEDS: magnesium Cl slow-release 64mg tablet PO SCH ×2 (07:36→19:52)
[2020-11-02] MEDS: sennosides/docusate sodium tablet PO SCH ×2 (07:37→19:52)
[2020-11-02 08:04] LABS: MAGNESIUM 2.3 MG/DL (1.5-2.4)
[2020-11-02] MEDS: fenofibrate 48mg tablet PO SCH (08:30)
[2020-11-02] MEDS: insulin Lispro (HumaLOG) vial - multi-dose SQ SCH ×2 (09:49→13:32)
[2020-11-02 11:00] VITALS: BP 137/53
--- NOTE | 2020-11-02 12:54 | NUR ---
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 PO 75-100% avg NCS diet post-op eating well. AJIT recommends ensure high protein TIDWM for wound healing post-op since reports not tolerating milk to drink and DM hx; notified. LBM 11/01 receiving routine senna. Will continue to monitor for additional protein needs post-op. Rec: 1. advance diet as medically indicated to carb controlled 2. ensure high protein TIDWM 3. routine bowel care 4. weekly wts Addendum: 11/02/20 at [address] Amended: Links added. Addendum: 11/02/20 at [address] Ensure Enlive TIDWM recommended in error; AJIT d/w RN regarding cancelling ONS if MD agreeable given DM hx as ensure high protein TIDWM would be more appropriate.
[2020-11-02] MEDS: lactose-reduced food (Ensure Enlive) - 237ml bottle PO SCH ×2 (13:00→18:00)
[2020-11-02 14:00] VITALS: BP 148/65
[2020-11-02 18:00] VITALS: BP 140/53
[2020-11-02] MEDS: rivaroxaban 20mg tablet PO SCH (19:51)
[2020-11-02] MEDS: atorvastatin 10mg tablet PO SCH (19:52)
[2020-11-02] MEDS: HYDROcodone/acetaminophen 10/325mg tab PO PRN (19:54)
[2020-11-02] MEDS ORDERED: lisinopril 20mg tablet PO SCH (21:00)
[2020-11-02] MEDS: latanoprost 0.005% 2.5ml ophthalmic drops EACHEYE SCH (21:15)
[2020-11-02] MEDS: insulin glargine (Lantus) pen - multi-dose SQ SCH (21:17)
[2020-11-02 22:00] VITALS: BP 162/79
--- NOTE | 2020-11-03 | NUR ---
Patient in room MED 317. I have received report from Jayme CANALES and had the opportunity to ask questions and assume patient care. Pt resting in bed, easily aroused. NAD noted, RR even and unlabored. Safety precautions in place. Will continue to monitor.
[2020-11-03 02:00] VITALS: BP 133/64
[2020-11-03 06:00] VITALS: BP 166/74
--- NOTE | 2020-11-03 06:14 | NUR ---
Problems reprioritized. Patient report given, questions answered & plan of care reviewed with Rosana CANALES.
--- NOTE | 2020-11-03 06:20 | NUR ---
Patient in room MED 317. I have received report from lonnie maxwell and had the opportunity to ask questions and assume patient care.
[2020-11-03 07:24] LABS: ALBUMIN 1.3 G/DL (3.4-5.0); ANION GAP 2 (8-16); BLOOD UREA NITROGEN 27 MG/DL (7-18); BUN/CREATININE RATIO 19.6 (6.6-38.0); CALCIUM 8.9 MG/DL (8.5-10.1); CHLORIDE 106 MMOL/L (99-107); CREATININE 1.38 MG/DL (0.40-0.90); GLUCOSE 157 MG/DL (70-104); POTASSIUM 4.1 MMOL/L (3.5-5.1); SODIUM 139 MMOL/L (135-145); TOTAL CARBON DIOXIDE 30.6 MMOL/L (24-32); eGFR 38 ML/MIN
[2020-11-03] MEDS: sennosides/docusate sodium tablet PO SCH (08:00)
[2020-11-03] MEDS: aspirin 81mg tablet.DR PO SCH (08:04)
[2020-11-03] MEDS: furosemide 20MG tablet PO SCH (08:05)
[2020-11-03] MEDS: levoTHYROXINE 25mcg tablet PO SCH (08:05)
[2020-11-03] MEDS: pantoprazole 40mg Tablet.DR PO SCH (08:05)
[2020-11-03] MEDS: magnesium Cl slow-release 64mg tablet PO SCH (08:05)
[2020-11-03] MEDS: digoxin 250mcg (0.25mg) tablet PO SCH (08:05)
[2020-11-03] MEDS: potassium Cl 20 mEq SR tablet PO SCH (08:06)
[2020-11-03] MEDS: fenofibrate 48mg tablet PO SCH (08:06)
[2020-11-03] MEDS: insulin Lispro (HumaLOG) vial - multi-dose SQ SCH (09:59)
[2020-11-03 11:00] VITALS: BP 137/69
--- NOTE | 2020-11-03 12:51 | NUR ---
Wound care was asked to help remove a dressing from patients chest. Patient had a reaction to her skin from the surgical drape used in the OR. She has some scabbing to the neck and chest outside of the current dressing that was an island dressing. I used some adhesive remover in a spray can to help remove the island dressing. It came off easily with that. The surgical incision is with surgical glue closure. There is some scattered scabs and an area of about 3cm x3cm to the left side of the proximal end of the incision with partial thickness skin loss, most likely from the surgical drape. This area was cleaned with wound cleanser as well as the incisional line, [place] barrier skin wand was used to protect area surrounding the incision and the scabs. I used marathon over the area of partial thickness skin loss. Nursing stated to leave the incision open to air is what she was told to do. Other options were left at bedside should they be needed. Wound care available if any other needs arise.
--- NOTE | 2020-11-03 13:30 | NUR ---
reviewed all discharge instructions with pt and ,no new prescriptions, photo taken of sternal incision after wound care removed dressing,[facility] dc'd from [facility],site clear,pt dc'd home via wheelchair with all belongings
== END 2020-11-03 13:48 | disposition home or self-care (01) | DRG 271 ==
LOC: EDSTATUS 07:30 → PAS IN 10-29 05:27 → EDSTATUS 10-29 08:30 → CICU 2S 10-29 08:39 → MED 3N 10-30 15:50
PROVIDERS: ADMIT Thoracic Surgery (Cardiothoracic Vascular Surgery); ATTEND Thoracic Surgery (Cardiothoracic Vascular Surgery)
PROC: B24BZZ4 Ultrasonography of Heart with Aorta, Transesophageal (ICD-10-PCS; 2020-10-29)
PROC: 5A09357 Assistance with Respiratory Ventilation, Less than 24 Consecutive Hours, Continuous Positive Airway Pressure (ICD-10-PCS; 2020-10-29)
PROC: 02TN0ZZ Resection of Pericardium, Open Approach (ICD-10-PCS; principal; 2020-10-29 07:53)
PROC: 5A09357 Assistance with Respiratory Ventilation, Less than 24 Consecutive Hours, Continuous Positive Airway Pressure (ICD-10-PCS; 2020-10-31)
PROC: 5A09357 Assistance with Respiratory Ventilation, Less than 24 Consecutive Hours, Continuous Positive Airway Pressure (ICD-10-PCS; 2020-11-01)
DX: I31.1 Chronic constrictive pericarditis (principal); I50.32 Chronic diastolic (congestive) heart failure; I48.21 Permanent atrial fibrillation; E03.9 Hypothyroidism, unspecified; E11.9 Type 2 diabetes mellitus without complications; I11.0 Hypertensive heart disease with heart failure; G47.30 Sleep apnea, unspecified; Z77.22 Contact with and (suspected) exposure to environmental tobacco smoke (acute) (chronic); M19.90 Unspecified osteoarthritis, unspecified site; I25.10 Atherosclerotic heart disease of native coronary artery without angina pectoris; Z82.0 Family history of epilepsy and other diseases of the nervous system; Z82.49 Family history of ischemic heart disease and other diseases of the circulatory system; Z87.01 Personal history of pneumonia (recurrent)
CPT/HCPCS: 0232T; 93306; 93312; 93325; 36415; 36600; 71045; 71046; 80047; 80048; 80053; 81003; 82330; 82435; 82803; 82947; 82948; 83036; 83735; 84100; 84132; 84295; 84443; 85018; 85025; 85384; 85610; 85730; 86885; 86900; 86901; 86920; 87081; 87635; 88305; 88311; 93005; 93880; 94002; 94668; 94760; 97110; 97116; 97161; 97530; A4618; A6258; A6449; A7000; A7048; C1713; C1751; C9113; G0378; J0690; J1100; J1650; J1815; J1940; J2001; J2060; J2250; J2270; J2405; J2704; J2795; J3010; J3370; J3475; J3480; J7040; J7050; J7120; P9045

== ENCOUNTER 2021-12-24 11:32 | Emergency (ER) | payer MEDICARE, MEDICAID ==
[~2021-12-24] VITALS: Ht 162.6 cm; Wt 66.4 kg
[~2021-12-24 11:32] MED LIST changes: +DULO30CA52 PO; +GLYB5TAB7 PO; +LATA2.5D14 EACHEYE; +NITR0.4T51 SL; +TORS20TA3 PO
--- NOTE | 2021-12-24 13:22 | NUR ---
AWAITING AVAILABLE ROOM. PT GLUCOSE CHECKED AND WITH RETURN READING OF HI. PT REMAINS WITHOUT N/V AND REPORTING SHE IS WANTING TO EAT. LABS ORDERED, ED CHARGE UPDATED.
[2021-12-24 13:46] LABS: BASOPHILS % (AUTO) 0.4 % (0-1); EOSINOPHILS # (AUTO) 0.3 X10'3 (0-0.9); EOSINOPHILS % (AUTO) 3.5 % (0-6); HEMATOCRIT 45.9 % (35.0-45.0); HEMOGLOBIN 15.2 g/dl (12.0-16.0); LYMPHOCYTES # (AUTO) 0.5 X10'3 (1.1-4.8); LYMPHOCYTES % (AUTO) 7.4 % (21-51); MEAN CORPUSCULAR HEMOGLOBIN 27.3 PG (27.0-31.0); MEAN CORPUSCULAR HGB CONC 33.1 g/dL (33.0-36.5); MEAN CORPUSCULAR VOLUME 82.3 FL (78-98); MEAN PLATELET VOLUME 9.6 FL (7.4-10.4); MONOCYTES # (AUTO) 0.4 X10'3 (0-0.9); MONOCYTES % (AUTO) 5.9 % (2-12); NEUTROPHILS # (AUTO) 5.9 X10'3 (1.8-7.7); NEUTROPHILS % (AUTO) 82.8 % (42-75); PLATELET COUNT 253 X10'3 (140-440); RED BLOOD COUNT 5.57 X10'6 (4.20-5.60); RED CELL DISTRIBUTION WIDTH 15.9 % (11.5-14.5); WHITE BLOOD COUNT 7.1 X10'3 (4.5-11.0)
[2021-12-24 14:04] LABS: ALANINE AMINOTRANSFERASE 34 U/L (12-78); ALBUMIN/GLOBULIN RATIO 0.9 (1.1-1.5); ALKALINE PHOSPHATASE 152 IU/L (46-116); ANION GAP 9 (8-16); ASPARTATE AMINO TRANSFERASE 21 U/L (10-37); BILIRUBIN,TOTAL 0.8 MG/DL (0.1-1.0); BLOOD UREA NITROGEN 29 MG/DL (7-18); BUN/CREATININE RATIO 15.1 (6.6-38.0); CALCIUM 10.2 MG/DL (8.5-10.1); CHLORIDE 86 MMOL/L (99-107); CREATININE 1.92 MG/DL (0.40-0.90); POTASSIUM 4.4 MMOL/L (3.5-5.1); SODIUM 125 MMOL/L (135-145); TOTAL CARBON DIOXIDE 29.9 MMOL/L (24-32); TOTAL PROTEIN 8.4 G/DL (6.4-8.2); eGFR 26 ML/MIN
[2021-12-24 14:08] LABS: GLUCOSE 701 MG/DL (70-104)
[2021-12-24] MEDS ORDERED: normal saline 1000ml 1,000 ML IV ONE ×3 (14:20→15:50)
[2021-12-24] MEDS ORDERED: insulin regular, human 10 units/0.1 ml syringe IV ONE ×2 (14:50→15:55)
[2021-12-24 14:52] LABS: CLARITY,URINE CLEAR (Clear); COLOR,URINE YELLOW (Yellow); GLUCOSE, URINE >=1000 mg/dl (Neg); KETONES,URINE NEGATIVE (Neg); LEUKOCYTE ESTERASE ,URINE NEGATIVE (Neg); NITRITES, URINE NEGATIVE (Neg); OCCULT BLOOD,URINE NEGATIVE (Neg); PROTEIN,URINE NEGATIVE (Neg); UROBILINOGEN,URINE 0.2 E.U/dL (0.2-1.0)
[2021-12-24 14:58] LABS: ABG BASE EXCESS -0.7 mmol/L (-2.0-2.0); ABG OXYGEN SATURATION 96.9 % (94-97); ABG PCO2 (T) 34.9 mmHg (32.0-45.0); ABG PO2 (T) 87.1 mmHg (75.0-100.0); ALLEN'S TEST POSITIVE; FCOHb 0.9 % (0.0-3.9); FMetHb 0.1 % (0.0-1.5); FO2Hb 95.9 % (94-97); TOTAL HEMOGLOBIN 13.7 G/dl (12.0-16.0)
[2021-12-24 15:00] LABS: UA COLLECTION TYPE CLN CATCH MIDSTREAM
[2021-12-24 15:02] LABS: BACTERIA,URINE NONE SEEN /HPF (Neg); MUCUS STRANDS NONE SEEN /LPF (Neg); RBC,URINE NONE SEEN /HPF (0-2); SQUAMOUS EPITHELIAL CELL,UR FEW /LPF (FEW); WBC,URINE 0-4 /HPF (0-4)
[2021-12-24 15:03] LABS: YEAST FEW /HPF (NEGATIVE)
--- NOTE | 2021-12-24 15:19 | NUR ---
PA at bedside.
[2021-12-24 16:34] VITALS: BP 131/64
== END 2021-12-24 18:07 | disposition home or self-care (01) ==
LOC: ER 11:32
DX: E11.65 Type 2 diabetes mellitus with hyperglycemia (principal); R53.1 Weakness; Z79.899 Other long term (current) drug therapy
CPT/HCPCS: 36415; 36600; 80053; 81001; 82803; 82948; 85018; 85025; 96361; 96374; 96376; 99284; J1815; J7030